=== PATIENT | female | born 1965 | race Caucasian/White ===

== ENCOUNTER 2021-05-28 10:50 | Emergency (ER) | payer OTHER ==
[2021-05-28 14:04] LABS: BASOPHIL 0.4 % (0-2); EOSINOPHIL 0.2 % (0-5); HCT 43.3 % (37.0-47.0); HGB 13.6 g/dl (12.5-16.0); MCH 25.1 pg (25.0-31.0); MCHC 31.4 g/dL (32.0-36.0); MCV 79.9 fL (78.0-100.0); MONOCYTE 12.7 % (0-12); MPV 9.3 fL (6.0-9.5); NEUTROPHIL 57.5 % (41-80); NRBC 0; PLT 258 K/uL (150-400); RBC 5.42 M/uL (4.20-5.40); RDW 14.8 % (11.5-14.0); WBC 4.8 K/uL (4.0-10.5)
[2021-05-28 14:19] LABS: ALBUMIN 3.7 g/dL (3.4-5.0); BILIRUBIN - TOTAL 0.2 mg/dL (0.2-1.0); BUN/CREAT RATIO (CALC) 11.5 RATIO; CREATININE 0.87 mg/dL (0.51-0.95); GLOBULIN (CALCULATION) 4.5 g/dL; POTASSIUM 3.5 mmol/L (3.5-5.1); TOTAL PROTEIN 8.2 g/dL (6.4-8.2)
[2021-05-28] MEDS ORDERED: DICLOFENAC SODI75 MG PO (15:13)
[2021-05-28] MEDS ORDERED: ONDANSETRON HCL4 MG PO (15:13)
== END 2021-05-28 15:23 | disposition home or self-care (01) ==
LOC: FER 10:50
PROVIDERS: Physician Assistant Medical
DX: K52.9 Noninfective gastroenteritis and colitis, unspecified (principal); M54.50 Low back pain, unspecified
CPT/HCPCS: 36415; 80053; 85025; J1885; J2405; J7030